=== PATIENT | male | born 1970 | race Caucasian/White ===

== ENCOUNTER 2022-04-21 06:52 | Day surgery (SDC) | payer OTHER ==
[2022-04-15 15:56] LABS: ALBUMIN/GLOBULIN RATIO 1.1 (1.1-1.5); ALKALINE PHOSPHATASE 44 IU/L (46-116); BLOOD UREA NITROGEN 18 MG/DL (7-18); CHLORIDE 107 MMOL/L (99-107); PRE OP ALT 38 U/L (30-65); PRE OP ANION GAP 6 (8-16); PRE OP AST 16 U/L (10-37); PRE OP BILIRUB, TOTAL 0.5 MG/DL (0.0-1.0); PRE OP GLUCOSE 109 MG/DL (70-104); PRE OP SODIUM 142 MMOL/L (135-145); TOTAL CARBON DIOXIDE 28.6 MMOL/L (24-32); TOTAL PROTEIN 7.5 G/DL (6.4-8.2); eGFR 78 ML/MIN
[2022-04-15 16:00] LABS: BASOPHILS % (AUTO) 0.6 % (0-1); EOSINOPHILS # (AUTO) 0.1 X10'3 (0-0.9); EOSINOPHILS % (AUTO) 2.2 % (0-6); LYMPHOCYTES # (AUTO) 2.1 X10'3 (1.1-4.8); LYMPHOCYTES % (AUTO) 38.4 % (21-51); MEAN CORPUSCULAR HEMOGLOBIN 27.8 PG (27.0-31.0); MEAN CORPUSCULAR HGB CONC 33.6 g/dL (33.0-36.5); MEAN CORPUSCULAR VOLUME 82.6 FL (78-98); MEAN PLATELET VOLUME 7.7 FL (7.4-10.4); MONOCYTES # (AUTO) 0.6 X10'3 (0-0.9); MONOCYTES % (AUTO) 10.1 % (2-12); NEUTROPHILS # (AUTO) 2.7 X10'3 (1.8-7.7); NEUTROPHILS % (AUTO) 48.7 % (42-75); PRE OP HEMATOCRIT 48.4 % (42.0-52.0); PRE OP HEMOGLOBIN 16.3 g/dL (14.0-17.9); PRE OP PLATELET COUNT 198 X10'3 (140-440); RED BLOOD COUNT 5.86 X10'6 (4.70-6.10); RED CELL DISTRIBUTION WIDTH 13.9 % (11.5-14.5)
[2022-04-21] VITALS (9 sets, daily range): BP systolic 118–162; BP diastolic 82–99
[~2022-04-21] VITALS: Ht 170.2 cm; Wt 108.0 kg
[~2022-04-21 06:52] MED LIST: BUPIVAcaine/PF 2.5 mg/ml (0.25%) 30ml vial ONE; IBUP-1986 PO; ceFAZolin inj. 2,000 MG in dextrose 5%-water 100 ML IV ONE; famotidine 20mg tablet PO ONE; ringers solution, lacted 1,000 ML IV SCH
[2022-04-21] MEDS ORDERED: cloNIDine hcl/PF 100mcg/ml inj ONE (09:21)
[2022-04-21] MEDS ORDERED: sevoflurane 250ml liquid IH ONE (09:25)
[2022-04-21] MEDS ORDERED: fentaNYL/PF 50MCG/1 ML 2ML syringe ONE (09:27)
[2022-04-21] MEDS ORDERED: midazolam 1 mg/ML 2ml injection ONE (09:27)
[2022-04-21] MEDS ORDERED: LIDOcaine 1%/PF 5ML 10 MG/ML VIAL ONE (10:08)
[2022-04-21] MEDS ORDERED: ondansetron/PF 4mg/2ml inj ONE (10:08)
[2022-04-21] MEDS ORDERED: propofol inj 20 ML IV ONE (10:08)
[2022-04-21] MEDS ORDERED: LIDOcaine 2% (20mg/ml) 5ml vial ONE (10:08)
[2022-04-21] MEDS ORDERED: dexamethasone sod phosphate 4mg/ml inj. ONE (10:08)
[2022-04-21] MEDS ORDERED: rocuronium 10mg/ml inj IV ONE (10:08)
[2022-04-21] MEDS ORDERED: ROPIVAcaine 0.5% (5mg/ml) 30ml vial ONE (10:08)
[2022-04-21] MEDS ORDERED: ondansetron/PF 4mg/2ml inj IV PRN (10:15)
[2022-04-21] MEDS ORDERED: morphine 2 MG/ML inj. syringe IV PRN (10:15)
[2022-04-21] MEDS ORDERED: acetaminophen 1,000mg/100ml IV 100 ML IV PRN (10:15)
[2022-04-21] MEDS ORDERED: hydrALAZINE 20mg/ml inj. IV PRN (10:15)
[2022-04-21] MEDS ORDERED: meperidine/PF 25mg/ml syringe IV PRN ×3 (10:15)
[2022-04-21] MEDS ORDERED: ringers solution, lacted 1,000 ML IV SCH (10:15)
[2022-04-21] MEDS ORDERED: labetalol 20mg/4ml (5mg/ml) syringe IV PRN (10:15)
[2022-04-21] MEDS ORDERED: proCHLORperazine 10 MG/2 ml inj IV PRN (10:15)
[2022-04-21] MEDS ORDERED: morphine 4 MG/ML inj SYRINge IV PRN (10:15)
[2022-04-21] MEDS ORDERED: HYDROcodone/acetaminophen 10/325mg tab PO PRN (11:10)
--- NOTE | 2022-04-21 11:23 | NUR ---
Received from OR via [facility], accompanied by Anesthesiologist and report given by LAVINIA Anesthesiologist. PATIENT WAKING UP, DENIES PAIN, V/S WNL, SCD ON, 20G TO xiomara QURESHI to shoulder-CDI with ICE POWDER PACK. Addendum: 04/21/22 at 1150 by Beka Miramontes RN Amended: Links added.
--- NOTE | 2022-04-21 12:33 | NUR ---
ALL DISCHARGE CRITERIA HAS BEEN MET. VSS, PAIN AT A TOLERABLE LEVEL, ABLE TO SAFELY AMBULATE AND TRANSFER SELF. IV TAKEN OUT WITHOUT ANY COMPLICATIONS. ALL DISCHARGE INSTRUCTIONS COVERED WITH PATIENT AND ALL QUESTIONS ANSWERED. PATIENT TAKEN OUT VIA WHEELCHAIR WITH ALL BELONGINGS TO PERSONAL VEHICLE WHERE FAMILY DROVE PATIENT HOME. Addendum: 04/21/22 at 1242 by Beka Miramontes RN Amended: Links added.
== END 2022-04-21 12:33 | disposition home or self-care (01) ==
LOC: PAS 06:52
PROVIDERS: ATTEND Orthopaedic Surgery
DX: M75.22 Bicipital tendinitis, left shoulder (principal); M19.012 Primary osteoarthritis, left shoulder; M75.42 Impingement syndrome of left shoulder; M75.21 Bicipital tendinitis, right shoulder; M75.52 Bursitis of left shoulder; Z79.899 Other long term (current) drug therapy; Z98.890 Other specified postprocedural states; G89.18 Other acute postprocedural pain; F32.9 Major depressive disorder, single episode, unspecified; G47.30 Sleep apnea, unspecified; Z96.641 Presence of right artificial hip joint; Z86.73 Personal history of transient ischemic attack (TIA), and cerebral infarction without residual deficits
CPT/HCPCS: 29823; 29828; 36415; 64415; 76942; 80053; 82948; 85025; 87811; C1713; J0690; J0735; J1100; J2250; J2405; J2704; J2795; J3010; J3490; J7060; J7120; Z7506; Z7508; Z7512; A4565; A4618; A6253; A6449; A7000

== ENCOUNTER 2024-10-13 16:26 | Emergency (ER) | payer OTHER ==
[~2024-10-13] VITALS: Ht 170.2 cm; Wt 109.6 kg
[~2024-10-13 16:26] MED LIST changes: -BUPIVAcaine/PF 2.5 mg/ml (0.25%) 30ml vial ONE; -ceFAZolin inj. 2,000 MG in dextrose 5%-water 100 ML IV ONE; -famotidine 20mg tablet PO ONE; -ringers solution, lacted 1,000 ML IV SCH
[2024-10-13 16:40] VITALS: TEMP 98.6
[2024-10-13] MEDS: hydrALAZINE 20mg/ml inj. IV ONE ×2 (18:14→19:20)
[2024-10-13] MEDS ORDERED: LISI20TA28 PO (18:15)
[2024-10-13 18:51] LABS: BASOPHILS % (AUTO) 0.5 % (0-1); EOSINOPHILS # (AUTO) 0.1 X10'3 (0-0.9); EOSINOPHILS % (AUTO) 1.8 % (0-6); HEMATOCRIT 47.5 % (42.0-52.0); HEMOGLOBIN 16.3 g/dl (14.0-17.9); LYMPHOCYTES # (AUTO) 1.9 X10'3 (1.1-4.8); LYMPHOCYTES % (AUTO) 29.4 % (21-51); MEAN CORPUSCULAR HEMOGLOBIN 28.8 PG (27.0-31.0); MEAN CORPUSCULAR HGB CONC 34.4 g/dL (33.0-36.5); MEAN CORPUSCULAR VOLUME 83.7 FL (78-98); MEAN PLATELET VOLUME 7.7 FL (7.4-10.4); MONOCYTES # (AUTO) 0.6 X10'3 (0-0.9); MONOCYTES % (AUTO) 9.2 % (2-12); NEUTROPHILS # (AUTO) 3.9 X10'3 (1.8-7.7); NEUTROPHILS % (AUTO) 59.1 % (42-75); PLATELET COUNT 212 X10'3 (140-440); RED BLOOD COUNT 5.68 X10'6 (4.70-6.10); WHITE BLOOD COUNT 6.6 X10'3 (4.5-11.0)
[2024-10-13 19:13] LABS: ALANINE AMINOTRANSFERASE 47 U/L (12-78); ALBUMIN 3.9 G/DL (3.4-5.0); ALKALINE PHOSPHATASE 47 IU/L (46-116); ANION GAP 8 (8-16); BILIRUBIN,TOTAL 0.4 MG/DL (0.1-1.0); BLOOD UREA NITROGEN 20 MG/DL (7-18); BUN/CREATININE RATIO 23.3 (10.0-20.0); CALCIUM 8.2 MG/DL (8.5-10.1); CHLORIDE 104 MMOL/L (99-107); CREATININE 0.86 MG/DL (0.60-1.10); PRO BRAIN NATRIURETIC PEPTIDE < 30 PG/ML (0-125); SODIUM 139 MMOL/L (135-145); TOTAL CARBON DIOXIDE 26.8 MMOL/L (24-32); TOTAL PROTEIN 7.7 G/DL (6.4-8.2); eCRCL 90 ML/MIN; eGFR > 90 ML/MIN
[2024-10-13 19:17] LABS: ASPARTATE AMINO TRANSFERASE 22 U/L (10-37); GLUCOSE 118 MG/DL (70-104)
[2024-10-13 19:21] VITALS: BP 171/108; PULSE 80; RESP 16; O2SAT 96
== END 2024-10-13 19:32 | disposition home or self-care (01) ==
LOC: ER 16:26
DX: I10 Essential (primary) hypertension (principal); Z79.899 Other long term (current) drug therapy; Z86.73 Personal history of transient ischemic attack (TIA), and cerebral infarction without residual deficits
CPT/HCPCS: 36415; 71045; 80053; 83880; 84484; 85025; 93005; 96374; 96376; 99285; J0360